=== PATIENT | male | born 1950 | race Hispanic/Latino ===

== ENCOUNTER 2019-08-22 11:27 | Emergency (ER) | payer OTHER, SELFPAY ==
--- NOTE | 2019-08-22 11:52 | RAD ---
XR Hand Lt 3 View STANDARD HISTORY: Trauma to hand. COMPARISON: None. FINDINGS: There is soft tissue injury of the tip of the thumb. There is an old appearing tuft fractur e of the distal phalanx of the thumb. There are arthritic changes of the hand and wrist. IMPRESSION: Soft tissue injury of the thumb. The tuft fracture in this area appears old.
[2019-08-22] MEDS ORDERED: Sodium Chloride 0.9% 1,000 ML ONE (12:02)
[2019-08-22] MEDS ORDERED: CEFAZOLIN 1 GM VIAL ONE (12:02)
[2019-08-22] MEDS ORDERED: Ondansetron PF 4 MG/2 ML Vial ONE (12:02)
[2019-08-22] MEDS ORDERED: Morphine 4 MG/ML VIAL ONE ×2 (12:02→13:32)
[2019-08-22] MEDS ORDERED: Ketorolac Tromethamine 30 MG/ML VIAL ONE (13:33)
== END 2019-08-22 13:45 | disposition home or self-care (01) ==
LOC: NAV ERS 11:27
DX: S68.022A Partial traumatic metacarpophalangeal amputation of left thumb, initial encounter (principal); W20.8XXA Other cause of strike by thrown, projected or falling object, initial encounter
CPT/HCPCS: 94760; 96374; 96375; 96376; J0690; J1885; J2270; J2405; J7050